=== PATIENT | male | born 1965 | race Caucasian/White ===

== ENCOUNTER 2017-10-27 10:16 | Emergency (ER) | payer BC, OTHER ==
[2017-10-27 10:52] VITALS: BP 122/63
--- NOTE | 2017-10-27 11:15 | UC ---
Laceration HPI - HPI Summary HPI Summary: 51 year old male with injury to hand . Pinched right fourth finger between panels on garage door about 45 minutes ago. Now has bleeding and laceration that did bleed and since then has stopped bleeding. mild oozing. [ End ] - History Of Current Complaint Chief Complaint: UCUpperExtremity Stated Complaint: RIGHT RING FINGER LACERATION Time Seen by Provider: 10/27/17 11:13 Hx Obtained From: Patient Mechanism Of Injury: Blunt Trauma Onset/Duration: Sudden Onset Pain Intensity: 4 - Allergies/Home Medications Allergies/Adverse Reactions: Allergies Allergy/AdvReac Type Severity Reaction Status Date / Time No Known Allergies Allergy Verified 10/27/17 10:44 Home Medications: Home Medications Pantoprazole TAB (NF) [Protonix TAB (NF)] 40 mg PO DAILY 10/27/17 [History Confirmed 10/27/17] PMH/Surg Hx/FS Hx/Imm Hx Previously Healthy: Yes GI/ History: Gastroesophageal Reflux - Surgical History Surgical History: Yes Surgery Procedure, Year, and Place: Right TKA, 2017, [facility]; 2 SX FOR TIBIAL PLATEAU REPAIR left. cardiac pericardial window 10/04/12 - Family History Known Family History: Positive: Hypertension - Social History Alcohol Use: 3-4 drinks every other day Alcohol Amount: 2-3x/week Substance Use Type: None Smoking Status (MU): Former Smoker Type: Cigarettes Amount Used/How Often: 2 cigarettes/day Length of Time of Smoking/Using Tobacco: 1 PPD x 30 Years Have You Smoked in the Last Year: Yes When Did the Patient Quit Smoking/Using Tobacco: 2005 - Immunization History Most Recent Influenza Vaccination: not this season Most Recent Tetanus Shot: 09/24/12 Review of Systems Skin: Other - laceration Is Patient Immunocompromised?: No All Other Systems Reviewed And Are Negative: Yes Physical Exam Triage Information Reviewed: Yes Appearance: Well-Appearing, No Pain Distress, Well-Nourished Vital Signs: Initial Vital Signs Temp 98.6 F 10/27/17 10:43 Pulse 66 10/27/17 10:43 Resp 16 10/27/17 10:43 BP 122/63 10/27/17 10:43 Pulse Ox 98 10/27/17 10:43 Vital Signs Reviewed: Yes Musculoskeletal Exam: Normal Neurological Exam: Normal Skin: Positive: Other - right ring finger with small slightly irregular Diagnostics - Laboratory Diagnostic Studies Completed/Ordered: INDICATION: Right fourth digit injury. COMPARISON: None. TECHNIQUE: AP, lateral, and oblique views were obtained. FINDINGS: There is a fracture the tuft with associated soft tissue injury about the. nailbed. No other findings.. IMPRESSION: TUFT FRACTURE. Laceration Course/Dx - Course/Dx Course Of Treatment: tuft fracture but also with laceration -- used adhesive to close the area with pressure dressing placed. advised to enrrique tape the figners. f/u with ortho at this time he already has ortho as he had knee surgery last fall and will call for appt. given APAP here. given 2 finger splints to use in a couple days once the laceration started to heal . - Differential Dx - Laceration/Wound Differental Diagnoses: Abrasion, Avulsion, Fracture, Laceration Provider Diagnoses: Right Finger fracture. Right Finger laceration Discharge - Sign-Out/Discharge Documenting (check all that apply): Discharge/Admit/Transfer - Discharge Plan Condition: Good Disposition: HOME Prescriptions: Amoxicillin/Clavulanate TAB* [Augmentin TAB 875*] 875 mg PO BID #14 tab Patient Education Materials: Finger Fracture (ED), Skin Adhesive Care (ED) Referrals: Sadiq Acosta MD [Primary Care Provider] - (follow up with your orthopedic doctor in 7-10 days if there are any concerns. ) Additional Instructions: Xray : INDICATION: Right fourth digit injury COMPARISON: None TECHNIQUE: AP, lateral, and oblique views were obtained. FINDINGS: There is a fracture the tuft with associated soft tissue injury about the nailbed. No other findings.. IMPRESSION: TUFT FRACTURE. - Billing Disposition and Condition Condition: GOOD Disposition: Home
--- NOTE | 2017-10-27 11:19 | RAD ---
INDICATION: Right fourth digit injury COMPARISON: None TECHNIQUE: AP, lateral, and oblique views were obtained. FINDINGS: There is a fracture the tuft with associated soft tissue injury about the nailbed. No other findings.. IMPRESSION: TUFT FRACTURE.
[2017-10-27] MEDS ORDERED: Gelfoam 100 COMPRESSED* SPONGE TOPICAL ONE (11:26)
[2017-10-27] MEDS ORDERED: Gelfoam 12-7 ADSORBABL SPONGE* 1 EA SPONGE ONE (11:29)
[2017-10-27] MEDS ORDERED: Acetaminophen TAB* 325 MG PO ONE (11:43)
== END 2017-10-27 11:49 | disposition home or self-care (01) ==
LOC: UCCORT 10:16
DX: S61.214A Laceration without foreign body of right ring finger without damage to nail, initial encounter (principal); S62.634A Displaced fracture of distal phalanx of right ring finger, initial encounter for closed fracture; W23.0XXA Caught, crushed, jammed, or pinched between moving objects, initial encounter; Y93.9 Activity, unspecified; Y92.008 Other place in unspecified non-institutional (private) residence as the place of occurrence of the external cause; Z87.891 Personal history of nicotine dependence
CPT/HCPCS: 12001; 26750; 73140; 99212; A9270-GY; G0463

== ENCOUNTER 2017-10-29 11:35 | Emergency (ER) | payer OTHER ==
[2017-10-29 11:54] VITALS: BP 148/91
--- NOTE | 2017-10-29 12:12 | UC ---
HPI Wound/Suture Re-check - HPI Summary HPI Summary: This is a 51-year-old male 2 days status post an open tuft fracture of his right ring finger. His laceration was repaired with a skin adhesive. Was placed in a tube gauze dressing. He presents here today for recheck because there was minimal bleeding through the dressing. He is only having mild throbbing pain which resolves with elevation of his extremity. - History Of Current Complaint Stated Complaint: RECHECK RIGHT RING FINGER LACERATION Hx Obtained From: Patient Onset/Duration: Sudden Onset, Lasting Days Severity: Mild Pain Intensity: 3 Pain Scale Used: 0-10 Numeric - Allergies/Home Medications Allergies/Adverse Reactions: Allergies Allergy/AdvReac Type Severity Reaction Status Date / Time No Known Allergies Allergy Verified 10/29/17 11:49 PMH/Surg Hx/FS Hx/Imm Hx Previously Healthy: Yes GI/ History: Gastroesophageal Reflux Other GI/ History: Barretts - Surgical History Surgical History: Yes Surgery Procedure, Year, and Place: Right TKA, 2017, [facility]; 2 SX FOR TIBIAL PLATEAU REPAIR left. cardiac pericardial window 10/04/12 - Family History Known Family History: Positive: Hypertension - Social History Alcohol Use: Weekly Alcohol Amount: 2-3x/week Substance Use Type: None Smoking Status (MU): Former Smoker Type: Cigarettes Amount Used/How Often: 2 cigarettes/day Length of Time of Smoking/Using Tobacco: 1 PPD x 30 Years Have You Smoked in the Last Year: Yes When Did the Patient Quit Smoking/Using Tobacco: 2005 - Immunization History Most Recent Influenza Vaccination: not this season Most Recent Tetanus Shot: 09/24/12 Review of Systems Constitutional: Negative Skin: Negative Eyes: Negative ENT: Negative Respiratory: Negative Cardiovascular: Negative Gastrointestinal: Negative Genitourinary: Negative Motor: Negative Neurovascular: Negative Musculoskeletal: Negative Neurological: Negative Psychological: Negative Is Patient Immunocompromised?: No All Other Systems Reviewed And Are Negative: Yes Physical Exam Triage Information Reviewed: Yes Appearance: Well-Appearing, No Pain Distress, Well-Nourished Vital Signs: Initial Vital Signs Temp 97.7 F 10/29/17 11:50 Pulse 60 10/29/17 11:50 Resp 16 10/29/17 11:50 BP 148/91 10/29/17 11:50 Pulse Ox 99 10/29/17 11:50 Vital Signs Reviewed: Yes ENT: Positive: Hearing grossly normal. Negative: Nasal drainage, TMs normal, Trismus, Muffled voice Neck: Positive: Supple Respiratory: Positive: Chest non-tender, Lungs clear, Normal breath sounds Cardiovascular: Positive: RRR Abdomen Description: Positive: No Organomegaly, Soft, Bruit Bowel Sounds: Positive: Present Musculoskeletal: Positive: ROM Intact, No Edema Neurological Exam: Normal Neurological: Positive: Alert Psychological Exam: Normal Skin Exam: Other - dressing removed Right ring finger examined/no active bleeding/no erythema Course/Dx - Differential Dx - Laceration/Wound Provider Diagnoses: recheck right ring finger open tuft fracture Discharge - Sign-Out/Discharge Documenting (check all that apply): Discharge/Admit/Transfer - Discharge Plan Condition: Stable Disposition: HOME Referrals: Sadiq Acosta MD [Primary Care Provider] - Additional Instructions: be sure to follow up next week with your orthopedist or primary recheck here sooner for concerns of infection - Billing Disposition and Condition Condition: STABLE Disposition: Home
== END 2017-10-29 12:20 | disposition home or self-care (01) ==
LOC: UCCORT 11:35
DX: S62.604D Fracture of unspecified phalanx of right ring finger, subsequent encounter for fracture with routine healing (principal); Z87.891 Personal history of nicotine dependence; X58.XXXD Exposure to other specified factors, subsequent encounter
CPT/HCPCS: 99212; G0463

== ENCOUNTER 2018-08-05 19:02 | Emergency (ER) | payer BC, OTHER ==
[2018-08-05 20:50] VITALS: BP 159/83
[2018-08-05] MEDS ORDERED: Acetaminophen TAB* 325 MG PO ONE (20:51)
--- NOTE | 2018-08-05 21:12 | UC ---
Throat Pain/Nasal Erasto HPI - HPI Summary HPI Summary: 52-year-old male comes in with a chief complaint of rhinorrhea and sinus pressure. It's been having rhinorrhea on and off for weeks. Rhinorrhea is yellow, sinus pressure. Since yesterday's had a fever and felt quite ill. Also having a lot of body aches which also started yesterday. He has taken some Advil which did help with symptoms. No shortness of breath or chest congestion. - History of Current Complaint Chief Complaint: UCGeneralIllness Stated Complaint: SINUS CONCERN Time Seen by Provider: 08/05/18 20:56 Pain Intensity: 7 - Allergies/Home Medications Allergies/Adverse Reactions: Allergies Allergy/AdvReac Type Severity Reaction Status Date / Time No Known Allergies Allergy Verified 08/05/18 20:41 Home Medications: Home Medications Ibuprofen TAB* [Advil TAB*] 200 mg PO Q6H PRN 08/05/18 [History Confirmed ] PMH/Surg Hx/FS Hx/Imm Hx Previously Healthy: Yes GI/ History: Gastroesophageal Reflux - Surgical History Surgical History: Yes Surgery Procedure, Year, and Place: Right TKA, 2017, [facility]; 2 SX FOR TIBIAL PLATEAU REPAIR left. cardiac pericardial window 10/04/12 - Family History Known Family History: Positive: Hypertension - Social History Alcohol Use: Weekly Alcohol Amount: 2-3x/week Substance Use Type: None Smoking Status (MU): Former Smoker Type: Cigarettes Amount Used/How Often: 2 cigarettes/day Length of Time of Smoking/Using Tobacco: 1 PPD x 30 Years Have You Smoked in the Last Year: Yes When Did the Patient Quit Smoking/Using Tobacco: 2005 - Immunization History Most Recent Influenza Vaccination: not this season Most Recent Tetanus Shot: 09/24/12 Review of Systems All Other Systems Reviewed And Are Negative: Yes Constitutional: Positive: Fever, Chills Skin: Positive: Negative Eyes: Positive: Negative ENT: Positive: Sore Throat, Nasal Discharge, Sinus Congestion, Sinus Pain/ Tenderness Respiratory: Positive: Negative Cardiovascular: Positive: Negative Gastrointestinal: Positive: Negative Motor: Positive: Negative Neurovascular: Positive: Negative Musculoskeletal: Positive: Myalgia Neurological: Positive: Negative Psychological: Positive: Negative Is Patient Immunocompromised?: No Physical Exam Triage Information Reviewed: Yes Appearance: No Pain Distress, Well-Nourished, Ill-Appearing - MILD Vital Signs: Initial Vital Signs Temp 101.9 F 08/05/18 20:43 Pulse 90 08/05/18 20:43 Resp 16 08/05/18 20:43 BP 159/83 08/05/18 20:43 Pulse Ox 96 08/05/18 20:43 Vital Signs Reviewed: Yes Eye Exam: Normal Eyes: Positive: Conjunctiva Clear ENT: Positive: Pharyngeal erythema, Nasal congestion, Nasal drainage, TMs normal Neck exam: Normal Neck: Positive: Supple Respiratory: Positive: Lungs clear, Normal breath sounds, No respiratory distress Cardiovascular: Positive: RRR Musculoskeletal Exam: Normal Musculoskeletal: Positive: Strength Intact, ROM Intact Neurological Exam: Normal Neurological: Positive: Alert, Muscle Tone Normal Psychological Exam: Normal Psychological: Positive: Age Appropriate Behavior Skin Exam: Normal Throat Pain/Nasal Course/Dx - Differential Dx/Diagnosis Provider Diagnosis: Sinusitis, Influenza Discharge - Sign-Out/Discharge Documenting (check all that apply): Patient Departure All imaging exams completed and their final reports reviewed: No Studies - Discharge Plan Condition: Stable Disposition: HOME Prescriptions: Amoxicillin/Clavulanate TAB* [Augmentin TAB 875*] 875 mg PO BID #18 tab Oseltamivir CAP* [Tamiflu CAP*] 75 mg PO BID #8 cap Patient Education Materials: Sinusitis (ED), Influenza (ED) Referrals: Sadiq Acosta MD [Primary Care Provider] - Additional Instructions: FOLLOW UP WITH YOUR DOCTOR IF NOT COMPLETELY IMPROVED. GET REEVALUATED SOONER FOR ANY WORSENING OF YOUR CONDITION OR ANY QUESTIONS OR CONCERNS. - Billing Disposition and Condition Condition: STABLE Disposition: Home
[2018-08-05 21:21] LABS: Influenza A Molecular POSITIVE (Negative)
[2018-08-05] MEDS ORDERED: Oseltamivir CAP* 75 MG CAP PO ONE ×2 (21:32→21:33)
[2018-08-05] MEDS ORDERED: Amoxicillin/Clavulanate TAB* 875 MG PO ONE ×2 (21:32→21:33)
== END 2018-08-05 21:49 | disposition home or self-care (01) ==
LOC: UCCORT 19:02
DX: J11.1 Influenza due to unidentified influenza virus with other respiratory manifestations (principal); J32.9 Chronic sinusitis, unspecified; Z87.891 Personal history of nicotine dependence
CPT/HCPCS: 99213; A9270-GY; G0463